=== PATIENT | female | born 1995 | race Caucasian/White ===

== ENCOUNTER 2019-01-04 19:44 | Emergency (ER) | payer OTHER ==
[2019-01-04 20:03] VITALS: TEMP 98.2
[2019-01-04] MEDS ORDERED: ONDANSETRON 4 MG/2 ML VIAL IVP STA (20:55)
[2019-01-04 21:45] LABS: Appearance,Urine Cloudy (Clear); Bacteria,Urine Few /hpf; Bilirubin,Urine Negative (Negative); Blood,Urine Moderate (Negative); Color,Urine Yellow; Glucose,Urine (UA) Negative (Negative); Ketones,Urine Negative (Negative); Leukocyte Esterase,Urine Large (Negative); Mucus,Urine Moderate /hpf; Nitrite,Urine Negative (Negative); Protein,Urine 1+ (Negative); RBC,Urine 12 /hpf (0-5); Specific Gravity,Urine 1.037 (1.001-1.035); Squamous Epithelial Cell,Urine 27 /hpf (0-4); WBC,Urine 59 /hpf (0-5)
[2019-01-04 21:47] LABS: ALT 53 U/L (9-52); AST 40 U/L (14-36); Albumin 4.1 g/dL (3.5-5.0); Alkaline Phosphatase 81 U/L (38-126); Amylase 50 U/L (30-110); Anion Gap 9 mmol/L; Blood Urea Nitrogen 12 mg/dL (7-17); Calcium 9.2 mg/dL (8.4-10.2); Carbon Dioxide 25 mmol/L (22-30); Chloride 105 mmol/L (98-107); Glucose 89 mg/dL (74-99); Lipase 74 U/L (23-300); Potassium 3.8 mmol/L (3.5-5.1); Sodium 139 mmol/L (137-145); Total Bilirubin 0.7 mg/dL (0.2-1.3); Total Protein 6.8 g/dL (6.3-8.2)
[2019-01-04 21:50] LABS: Basophils % (A) 0 %; Eosinophils # (A) 0.2 k/uL (0-0.7); Eosinophils % (A) 3 %; HCT 40.3 % (34.0-46.0); HGB 13.5 gm/dL (11.4-16.0); Lymphocytes # (A) 2.3 k/uL (1.0-4.8); Lymphocytes % (A) 25 %; MCH 29.7 pg (25.0-35.0); MCHC 33.4 g/dL (31.0-37.0); MCV 88.7 fL (80.0-100.0); Mean Platelet Volume 6.9; Monocytes # (A) 0.4 k/uL (0-1.0); Monocytes % (A) 4 %; Neutrophils # (A) 5.9 k/uL (1.3-7.7); Neutrophils % (A) 65 %; Platelet Count 407 k/uL (150-450); RBC 4.54 m/uL (3.80-5.40); RDW 13.5 % (11.5-15.5); WBC 9.1 k/uL (3.8-10.6)
[2019-01-04] MEDS ORDERED: LEVOFLOXACIN 750 MG TAB PO STA (22:09)
--- NOTE | 2019-01-04 22:14 | ED ---
Abdominal Pain HPI - General Chief Complaint: Abdominal Pain Stated Complaint: vomiting/body aches Time Seen by Provider: 01/04/19 20:54 Source: patient Mode of arrival: ambulatory Limitations: no limitations - History of Present Illness Initial Comments: This patient is 23-year-old woman who presents to be evaluated for right lower quadrant and right flank pains that are been going on since Tuesday. She states that came on shortly after noon which is just after she woke up that day. She describes them as being a stabbing type of pain which is intermittent, lasting about 30 minutes when it comes on. She states that the pain at the moment is only minimal. She declines analgesic. Patient states she has not noted any worsening or relieving factors. She has had some associated nausea and vomiting. Patient states that she was seen at [facility] Tuesday for this pain where they checked some lab tests, that she states showed tacos vation of her white blood cell count but not very high. She states she had a computed tomography scan was told that her appendix looked normal. The patient states her last bowel movement was earlier today and was normal. She has had a couple of episodes of vomiting without any blood or bile. Her last period was approximately 3 weeks ago and was normal. She is not having any vaginal discharge. MD Complaint: abdominal pain Onset/Timin -: days(s) Location: RLQ, R flank Radiation: none Migration to: no migration Severity: mild Quality: stabbing Consistency: colicky Improves With: nothing Associated Symptoms: nausea, vomiting - Related Data LMP (females 10-50): 3 weeks Home Medications Medication Instructions Recorded Confirmed Albuterol Sulfate [Proair Hfa] 2 puff INHALATION RT-Q6H PRN 01/04/19 01/04/19 Beclomethasone Dip 80 Mcg/Puff 1 puff INHALATION RT-BID 01/04/19 01/04/19 [Qvar 80 mcg] Biotin 5 mg PO DAILY 01/04/19 01/04/19 Blisovi 25 Fe 10/01 1 tab PO DAILY 01/04/19 01/04/19 Escitalopram [Lexapro] 20 mg PO DAILY 01/04/19 01/04/19 Loratadine [Claritin] 10 mg PO DAILY 01/04/19 01/04/19 Melatonin 10 mg PO HS 01/04/19 01/04/19 Montelukast [Singulair] 10 mg PO HS 01/04/19 01/04/19 Barton-3 Fatty Acids [Barton-3] 1,000 mg PO DAILY 01/04/19 01/04/19 lamoTRIgine [LaMICtal] 150 mg PO BID 01/04/19 01/04/19 Previous Rx's Medication Instructions Recorded Ciprofloxacin HCl [Cipro] 500 mg PO BID 3 Days #6 tab 01/04/19 Allergies Allergy/AdvReac Type Severity Reaction Status Date / Time bacitracin Allergy Rash/Hives Verified 01/04/19 21:27 [From Neosporin Plus] latex Allergy Rash/Hives Verified 01/04/19 21:27 lidocaine Allergy Rash/Hives Verified 01/04/19 21:27 [From Neosporin Plus] neomycin Allergy Rash/Hives Verified 01/04/19 21:27 [From Neosporin Plus] nickel Allergy Rash/Hives Verified 01/04/19 21:27 polymyxin B Allergy Rash/Hives Verified 01/04/19 21:27 [From Neosporin Plus] pramoxine Allergy Rash/Hives Verified 01/04/19 21:27 [From Neosporin Plus] Sulfa (Sulfonamide Allergy Rash/Hives Verified 01/04/19 21:27 Antibiotics) sulfamethoxazole Allergy Rash/Hives Verified 01/04/19 21:27 [From Bactrim] trimethoprim [From Bactrim] Allergy Rash/Hives Verified 01/04/19 21:27 Review of Systems ROS Statement: Those systems with pertinent positive or pertinent negative responses have been documented in the HPI. ROS Other: All systems not noted in ROS Statement are negative. Constitutional: Denies: fever, chills Respiratory: Denies: cough, dyspnea Cardiovascular: Denies: chest pain, palpitations, edema, syncope Gastrointestinal: Reports: abdominal pain, nausea, vomiting. Denies: diarrhea, melena, hematochezia Genitourinary: Reports: frequency. Denies: dysuria, hematuria, discharge, abno rmal menses Musculoskeletal: Denies: back pain Skin: Denies: rash Neurological: Denies: headache, weakness, numbness Past Medical History Past Medical History: Asthma, GERD/Reflux History of Any Multi-Drug Resistant Organisms: None Reported Past Surgical History: Adenoidectomy, Tonsillectomy Additional Past Surgical History / Comment(s): left knee Past Psychological History: Anxiety, Depression Smoking Status: Never smoker Past Alcohol Use History: None Reported Past Drug Use History: None Reported General Exam Limitations: no limitations General appearance: alert, in no apparent distress Head exam: Present: atraumatic, normocephalic Eye exam: Present: normal appearance ENT exam: Present: normal oropharynx Respiratory exam: Present: normal lung sounds bilaterally. Absent: respiratory distress, wheezes, rales, rhonchi, stridor Cardiovascular Exam: Present: regular rate, normal rhythm, normal heart sounds. Absent: systolic murmur, diastolic murmur, rubs, gallop GI/Abdominal exam: Present: soft, normal bowel sounds. Absent: distended, tenderness, guarding, rebound, rigid, mass, pulsatile mass, hernia Extremities exam: Present: normal inspection, normal capillary refill. Absent: pedal edema, calf tenderness Back exam: Present: normal inspection. Absent: CVA tenderness (R), CVA tenderness (L) Neurological exam: Present: alert Skin exam: Present: warm, dry, intact, normal color. Absent: rash Course Vital Signs 01/04/19 19:59 Temperature 98.2 F Pulse Rate 86 Respiratory 18 Rate Blood Pressure 103/70 O2 Sat by Pulse 98 Oximetry Medical Decision Making - Medical Decision Making Patient is 23-year-old woman with some lower and right flank abdominal pain. She does have some white cells in the urine and will treat this. Given the recent computed tomography scan, we discussed risks and benefits of repeating this for the chance of appendicitis, but the patient states that she would rather try the course of antibiotics and follow-up. The patient's abdominal exam is benign, not concerning for any evidence of appendicitis or peritoneal condition. We did discuss appropriate further care as well as return parameters. - Lab Data Result diagrams: 01/04/19 21:26 01/04/19 21:26 Lab Results 01/04/19 01/04/19 01/04/19 Range/Units 21:26 21: 21: WBC 9.1 (3.8-10.6) k/uL RBC 4.54 (3.80-5.40) m/uL Hgb 13.5 (11.4-16.0) gm/dL Hct 40.3 (34.0-46.0) % MCV 88.7 (80.0-100.0) fL MCH 29.7 (25.0-35.0) pg MCHC 33.4 (31.0-37.0) g/dL RDW 13.5 (11.5-15.5) % Plt Count 407 (150-450) k/uL Neutrophils % 65 % Lymphocytes % 25 % Monocytes % 4 % Eosinophils % 3 % Basophils % 0 % Neutrophils # 5.9 (1.3-7.7) k/uL Lymphocytes # 2.3 (1.0-4.8) k/uL Monocytes # 0.4 (0-1.0) k/uL Eosinophils # 0.2 (0-0.7) k/uL Basophils # 0.0 (0-0.2) k/uL Sodium 139 (137-145) mmol/L Potassium 3.8 (3.5-5.1) mmol/L Chloride 105 (98-107) mmol/L Carbon Dioxide 25 (22-30) mmol/L Anion Gap 9 mmol/L BUN 12 (7-17) mg/dL Creatinine 0.56 (0.52-1.04) mg/dL Est GFR (CKD-EPI)AfAm >90 (>60 ml/min/1.73 sqM) Est GFR (CKD-EPI)NonAf >90 (>60 ml/min/1.73 sqM) Glucose 89 (74-99) mg/dL Calcium 9.2 (8.4-10.2) mg/dL Total Bilirubin 0.7 (0.2-1.3) mg/dL AST 40 H (14-36) U/L ALT 53 H (9-52) U/L Alkaline Phosphatase 81 (38-126) U/L Total Protein 6.8 (6.3-8.2) g/dL Albumin 4.1 (3.5-5.0) g/dL Amylase 50 (30-110) U/L Lipase 74 (23-300) U/L Urine Color Yellow Urine Appearance Cloudy H (Clear) Urine pH 6.0 (5.0-8.0) Ur Specific [place] 1.037 H (1.001-1.035) Urine Protein 1+ H (Negative) Urine Glucose (UA) Negative (Negative) Urine Ketones Negative (Negative) Urine Blood Moderate H (Negative) Urine Nitrite Negative (Negative) Urine Bilirubin Negative (Negative) Urine Urobilinogen 2.0 (<2.0) mg/dL Ur Leukocyte Esterase Large H (Negative) Urine RBC 12 H (0-5) /hpf Urine WBC 59 H (0-5) /hpf Ur Squamous Epith Cells 27 H (0-4) /hpf Urine Bacteria Few H (None) /hpf Urine Mucus Moderate H (None) /hpf Disposition Clinical Impression: Urinary tract infection Disposition: HOME SELF-CARE Condition: Good Instructions (If sedation given, give patient instructions): Urinary Tract Infection in Women (ED) Prescriptions: Ciprofloxacin HCl [Cipro] 500 mg PO BID 3 Days #6 tab Is patient prescribed a controlled substance at d/c from ED?: No Referrals: Joss Fernandes MD [Primary Care Provider] - 1-2 days
[2019-01-04 23:08] VITALS: BP 126/79; PULSE 72; RESP 16
== END 2019-01-04 23:08 | disposition home or self-care (01) ==
LOC: EC 19:44
DX: N39.0 Urinary tract infection, site not specified (principal); J45.909 Unspecified asthma, uncomplicated; F41.9 Anxiety disorder, unspecified; F32.9 Major depressive disorder, single episode, unspecified; Z79.899 Other long term (current) drug therapy; Z88.1 Allergy status to other antibiotic agents; Z88.4 Allergy status to anesthetic agent; Z88.8 Allergy status to other drugs, medicaments and biological substances; Z88.2 Allergy status to sulfonamides; Z91.040 Latex allergy status
CPT/HCPCS: 36415; 80053; 82150; 83690; 85025; 81001; 99283; 96374; J2405

== ENCOUNTER 2019-01-10 21:56 | Emergency (ER) | payer OTHER ==
[2019-01-10 22:05] VITALS: TEMP 97.9
[2019-01-10] MEDS ORDERED: SODIUM CHLORIDE 0.9% 1,000 ML IV ONE (22:19)
--- NOTE | 2019-01-10 23:02 | ED ---
Nausea/Vomiting/Diarrhea HPI - General Chief complaint: Nausea/Vomiting/Diarrhea Stated complaint: Vomiting, LRQ pain Time Seen by Provider: 01/10/19 22:18 Source: patient, family Mode of arrival: ambulatory Limitations: no limitations - History of Present Illness Initial comments: Sarina is a morbidly obese 23-year-old female who presents to the emergency department today for evaluation of abdominal pain, nausea and vomiting. Patient states that since [facility] 12/31/2018 she has been experiencing alternating days of nausea and vomiting. She reports that on some she feels completely fine and she is able to eat anything she wants, however on other days she has nausea and vomiting. Patient was evaluated in our emergency department as well as an out side emergency department in the past 2 weeks with no acute findings. Patient returns today because she's had 3 episodes of nonbloody nonbilious emesis. Patient reports she has some vague right-sided abdominal pain and she has had loose stools no blood in her stools. - Related Data Home Medications Medication Instructions Recorded Confirmed Albuterol Sulfate [Proair Hfa] 2 puff INHALATION RT-Q6H PRN 01/04/19 01/10/19 Beclomethasone Dip 80 Mcg/Puff 1 puff INHALATION RT-BID 01/04/19 01/10/19 [Qvar 80 mcg] Biotin 5 mg PO DAILY 01/04/19 01/10/19 Blisovi 25 10/01 1 tab PO DAILY 01/04/19 01/10/19 Escitalopram [Lexapro] 20 mg PO DAILY 01/04/19 01/10/19 Loratadine [Claritin] 10 mg PO DAILY 01/04/19 01/10/19 Melatonin 10 mg PO HS 01/04/19 01/10/19 Montelukast [Singulair] 10 mg PO HS 01/04/19 01/10/19 Sundance-3 Fatty Acids [Sundance-3] 1,000 mg PO DAILY 01/04/19 01/10/19 lamoTRIgine [LaMICtal] 150 mg PO BID 01/04/19 01/10/19 Amoxicillin 500 mg PO TID 01/10/19 01/10/19 Dicyclomine [Bentyl] 20 mg PO Q6H 01/10/19 01/10/19 Fluticasone Nasal [place] [Flonase 1 spray EA NOSTRIL BID 01/10/19 01/10/19 Nasal [place]] Omeprazole [PriLOSEC] 20 mg PO DAILY 01/10/19 01/10/19 Primidone [Mysoline] 50 mg PO BID 01/10/19 01/10/19 methylPREDNISolone [Medrol Dose See Taper PO DIRECTED 01/10/19 01/10/19 Pack] Previous Rx's Medication Instructions Recorded Ondansetron [Zofran ODT] 4 mg PO Q8HR #12 tab 01/11/19 Allergies Allergy/AdvReac Type Severity Reaction Status Date / Time bacitracin Allergy Rash/Hives Verified 01/10/19 22:29 [From Neosporin Plus] latex Allergy Rash/Hives Verified 01/10/19 22:29 lidocaine Allergy Rash/Hives Verified 01/10/19 22:29 [From Neosporin Plus] neomycin Allergy Rash/Hives Verified 01/10/19 22:29 [From Neosporin Plus] nickel Allergy Rash/Hives Verified 01/10/19 22:29 polymyxin B Allergy Rash/Hives Verified 01/10/19 22:29 [From Neosporin Plus] pramoxine Allergy Rash/Hives Verified 01/10/19 22:29 [From Neosporin Plus] Sulfa (Sulfonamide Allergy Rash/Hives Verified 01/10/19 22:29 Antibiotics) sulfamethoxazole Allergy Rash/Hives Verified 01/10/19 22:29 [From Bactrim] trimethoprim [From Bactrim] Allergy Rash/Hives Verified 01/10/19 22:29 Review of Systems ROS Statement: Those systems with pertinent positive or pertinent negative responses have been documented in the HPI. ROS Other: All systems not noted in ROS Statement are negative. Past Medical History Past Medical History: Asthma, GERD/Reflux History of Any Multi-Drug Resistant Organisms: None Reported, MRSA Date of last positivie culture/infection: 2017 MDRO Source:: leg, arm Past Surgical History: Adenoidectomy, Tonsillectomy Additional Past Surgical History / Comment(s): left knee Past Psychological History: Anxiety, Depression Smoking Status: Never smoker Past Alcohol Use History: None Reported Past Drug Use History: None Reported General Exam - General Exam Comments Initial Comments: Physical Exam GENERAL: Patient is well-developed and well-nourished. Patient is nontoxic and well-hydrated and is in no distress. HENT: Normocephalic, Atraumatic. EYES: PERRL, EOMI PULMONARY: Unlabored respirations. No audible rales rhonchi or wheezing was noted. CARDIOVASCULAR: There is a regular rate and rhythm without any murmurs gallops or rubs. ABDOMEN: Soft and nontender with normal bowel sounds. SKIN: Skin is clear with no lesions or rashes and otherwise unremarkable. : Deferred NEUROLOGIC: Patient is alert and oriented x3. Moving all extremities spontaneously MUSCULOSKELETAL: Normal extremities with adequate strength and full range of motion. No lower extremity swelling or edema. No calf tenderness. PSYCHIATRIC: Normal psychiatric evaluation. Limitations: no limitations Limitations: no limitations Course Vital Signs 01/10/19 22:01 Temperature 97.9 F Pulse Rate 96 Respiratory 18 Rate Blood Pressure 121/78 O2 Sat by Pulse 97 Oximetry Medical Decision Making - Medical Decision Making The patient was seen and evaluated history was obtained from patient mother bedside Patient with intermittent abdominal pain nausea and vomiting for over 2 weeks duration Advised the patient that we will obtain labs and an ultrasound however I suspect she'll need outpatient follow-up with gastroenterology or neurosurgery for further workup Labs revealed normal liver function, normal CBC, mildly elevated CRP which is nonspecific and could be related to the patient's recent urinary tract infection or underlying inflammatory process On repeat examination prior to discharge, the patient has a soft abdomen with no peritoneal findings. The patient was able to tolerate oral intake. The patient was advised that even though there is no evidence of a surgical emergency at this time, sometimes this is not apparent initially or in the labs early in a disease course and that if there is additional pain they are to return for repeat evaluation. The patient stated understanding of this, has decisional making capacity and is discharged in stable condition. The patient was instructed to return to the emergency department for re-evaluation in 8-12 hours and sooner if they feel worse in any way. This time I advised the patient to begin keeping a food diary to see if she can find any correlation between food she eats and any changes in her bowel habits or development of nausea and vomiting. In addition I advised patient she needs to follow up with gastroenterology for further evaluation. - Lab Data Result diagrams: 01/10/19 23:11 01/10/19 23:11 Lab Results 01/10/19 01/10/19 01/11/19 Range/Units 23:11 23:11 00:15 WBC 8.9 (3.8-10.6) k/uL RBC 4.35 (3.80-5.40) m/uL Hgb 12.8 (11.4-16.0) gm/dL Hct 38.9 (34.0-46.0) % MCV 89.5 (80.0-100.0) fL MCH 29.5 (25.0-35.0) pg MCHC 33.0 (31.0-37.0) g/dL RDW 12.9 (11.5-15.5) % Plt Count 408 (150-450) k/uL Neutrophils % 64 % Lymphocytes % 22 % Monocytes % 6 % Eosinophils % 4 % Basophils % 1 % Neutrophils # 5.7 (1.3-7.7) k/uL Lymphocytes # 2.0 (1.0-4.8) k/uL Monocytes # 0.6 (0-1.0) k/uL Eosinophils # 0.4 (0-0.7) k/uL Basophils # 0.1 (0-0.2) k/uL Sodium 142 (137-145) mmol/L Potassium 4.6 (3.5-5.1) mmol/L Chloride 104 (98-107) mmol/L Carbon Dioxide 28 (22-30) mmol/L Anion Gap 10 mmol/L BUN 11 (7-17) mg/dL Creatinine 0.53 (0.52-1.04) mg/dL Est GFR (CKD-EPI)AfAm >90 (>60 ml/min/1.73 sqM) Est GFR (CKD-EPI)NonAf >90 (>60 ml/min/1.73 sqM) Glucose 89 (74-99) mg/dL Calcium 9.7 (8.4-10.2) mg/dL Total Bilirubin 0.7 (0.2-1.3) mg/dL AST 30 (14-36) U/L ALT 45 (9-52) U/L Alkaline Phosphatase 76 (38-126) U/L C-Reactive Protein 23.9 H (<10.0) mg/L Total Protein 6.7 (6.3-8.2) g/dL Albumin 4.2 (3.5-5.0) g/dL Urine Color Urine Appearance (Clear) Urine pH (5.0-8.0) Ur Specific [place] (1.001-1.035) Urine Protein (Negative) Urine Glucose (UA) (Negative) Urine Ketones (Negative) Urine Blood (Negative) Urine Nitrite (Negative) Urine Bilirubin (Negative) Urine Urobilinogen (<2.0) mg/dL Ur Leukocyte Esterase (Negative) Urine RBC (0-5) /hpf Urine WBC (0-5) /hpf Ur Squamous Epith Cells (0-4) /hpf Urine Bacteria (None) /hpf Urine Mucus (None) /hpf Urine HCG, Qual Not Detected (Not Detectd) 01/11/19 Range/Units 00:15 WBC (3.8-10.6) k/uL RBC (3.80-5.40) m/uL Hgb (11.4-16.0) gm/dL Hct (34.0-46.0) % MCV (80.0-100.0) fL MCH (25.0-35.0) pg MCHC (31.0-37.0) g/dL RDW (11.5-15.5) % Plt Count (150-450) k/uL Neutrophils % % Lymphocytes % % Monocytes % % Eosinophils % % Basophils % % Neutrophils # (1.3-7.7) k/uL Lymphocytes # (1.0-4.8) k/uL Monocytes # (0-1.0) k/uL Eosinophils # (0-0.7) k/uL Basophils # (0-0.2) k/uL Sodium (137-145) mmol/L Potassium (3.5-5.1) mmol/L Chloride (98-107) mmol/L Carbon Dioxide (22-30) mmol/L Anion Gap mmol/L BUN (7-17) mg/dL Creatinine (0.52-1.04) mg/dL Est GFR (CKD-EPI)AfAm (>60 ml/min/1.73 sqM) Est GFR (CKD-EPI)NonAf (>60 ml/min/1.73 sqM) Glucose (74-99) mg/dL Calcium (8.4-10.2) mg/dL Total Bilirubin (0.2-1.3) mg/dL AST (14-36) U/L ALT (9-52) U/L Alkaline Phosphatase (38-126) U/L C-Reactive Protein (<10.0) mg/L Total Protein (6.3-8.2) g/dL Albumin (3.5-5.0) g/dL Urine Color Yellow Urine Appearance Cloudy H (Clear) Urine pH 7.0 (5.0-8.0) Ur Specific [place] 1.013 (1.001-1.035) Urine Protein Negative (Negative) Urine Glucose (UA) Negative (Negative) Urine Ketones Negative (Negative) Urine Blood Negative (Negative) Urine Nitrite Negative (Negative) Urine Bilirubin Negative (Negative) Urine Urobilinogen <2.0 (<2.0) mg/dL Ur Leukocyte Esterase Large H (Negative) Urine RBC 2 (0-5) /hpf Urine WBC 12 H (0-5) /hpf Ur Squamous Epith Cells 7 H (0-4) /hpf Urine Bacteria Occasional H (None) /hpf Urine Mucus Rare H (None) /hpf Urine HCG, Qual (Not Detectd) Disposition Clinical Impression: Abdominal pain Disposition: HOME SELF-CARE Condition: Stable Instructions (If sedation given, give patient instructions): Acute Nausea and Vomiting (ED) Prescriptions: Ondansetron [Zofran ODT] 4 mg PO Q8HR #12 tab Is patient prescribed a controlled substance at d/c from ED?: No Referrals: Joss Fernandes MD [Primary Care Provider] - 1-2 days Claudio Burnett MD [STAFF PHYSICIAN] - 1-2 days Armani Mckay MD [STAFF PHYSICIAN] - 1-2 days
[2019-01-10 23:36] LABS: Basophils # (A) 0.1 k/uL (0-0.2); Basophils % (A) 1 %; Eosinophils # (A) 0.4 k/uL (0-0.7); Eosinophils % (A) 4 %; HCT 38.9 % (34.0-46.0); HGB 12.8 gm/dL (11.4-16.0); Lymphocytes % (A) 22 %; MCH 29.5 pg (25.0-35.0); MCV 89.5 fL (80.0-100.0); Mean Platelet Volume 6.2; Monocytes # (A) 0.6 k/uL (0-1.0); Monocytes % (A) 6 %; Neutrophils # (A) 5.7 k/uL (1.3-7.7); Neutrophils % (A) 64 %; Platelet Count 408 k/uL (150-450); RBC 4.35 m/uL (3.80-5.40); RDW 12.9 % (11.5-15.5); WBC 8.9 k/uL (3.8-10.6)
[2019-01-11 00:07] LABS: ALT 45 U/L (9-52); AST 30 U/L (14-36); Albumin 4.2 g/dL (3.5-5.0); Alkaline Phosphatase 76 U/L (38-126); Anion Gap 10 mmol/L; Blood Urea Nitrogen 11 mg/dL (7-17); C Reactive Protein 23.9 mg/L (<10.0); Calcium 9.7 mg/dL (8.4-10.2); Carbon Dioxide 28 mmol/L (22-30); Chloride 104 mmol/L (98-107); Glucose 89 mg/dL (74-99); Potassium 4.6 mmol/L (3.5-5.1); Sodium 142 mmol/L (137-145); Total Bilirubin 0.7 mg/dL (0.2-1.3); Total Protein 6.7 g/dL (6.3-8.2)
--- NOTE | 2019-01-11 00:54 | US ---
EXAM: US Abdomen Limited, Right Upper Quadrant CLINICAL HISTORY: ITS.REASON US Reason: Pain, vomiting TECHNIQUE: Real-time ultrasound of the right upper quadrant with image documentation. COMPARISON: CT 10/23/14 FINDINGS: Liver: Prominent in size measuring 18.3 cm in length. Suspected increase in echogenicity. Incompletely characterized enhancing lesion seen on previous CT in the right hepatic lobe not identified by ultrasound. Gallbladder: No gallstones. Provided wall thickness mildly prominent at slightly over 3 mm. Sonographic Jeffries sign reported as negative. Common bile duct: Normal caliber as visualized. Pancreas: Portions obscured. Unremarkable as visualized. Right kidney: Unremarkable. No hydronephrosis. IMPRESSION: No gallstones. Mild prominence of gallbladder wall. Negative sonographic Jeffries's. Prominent size liver with suspected increased echogenicity. Enhancing liver lesion seen in the right hepatic lobe on previous CT not identified. Seen only on portal venous imaging and not on delayed images. Differential includes hemangioma. Nonemergent MRI or other follow-up could be obtained, as indicated.
[2019-01-11 00:56] LABS: Appearance,Urine Cloudy (Clear); Bacteria,Urine Occasional /hpf; Bilirubin,Urine Negative (Negative); Blood,Urine Negative (Negative); Color,Urine Yellow; Glucose,Urine (UA) Negative (Negative); Ketones,Urine Negative (Negative); Leukocyte Esterase,Urine Large (Negative); Mucus,Urine Rare /hpf; Nitrite,Urine Negative (Negative); Protein,Urine Negative (Negative); RBC,Urine 2 /hpf (0-5); Specific Gravity,Urine 1.013 (1.001-1.035); Squamous Epithelial Cell,Urine 7 /hpf (0-4); Urobilinogen,Urine <2.0 mg/dL (<2.0); WBC,Urine 12 /hpf (0-5)
[2019-01-11 01:24] VITALS: BP 122/77; PULSE 70; RESP 16
== END 2019-01-11 01:24 | disposition home or self-care (01) ==
LOC: EC 21:56
DX: R10.31 Right lower quadrant pain (principal); R11.2 Nausea with vomiting, unspecified; R19.7 Diarrhea, unspecified; R79.82 Elevated C-reactive protein (CRP); J45.909 Unspecified asthma, uncomplicated; K21.9 Gastro-esophageal reflux disease without esophagitis; F41.9 Anxiety disorder, unspecified; F32.9 Major depressive disorder, single episode, unspecified; E66.01 Morbid (severe) obesity due to excess calories; Z68.41 Body mass index [BMI] 40.0-44.9, adult; Z86.14 Personal history of Methicillin resistant Staphylococcus aureus infection; Z79.51 Long term (current) use of inhaled steroids; Z79.52 Long term (current) use of systemic steroids; Z79.899 Other long term (current) drug therapy; Z88.1 Allergy status to other antibiotic agents; Z88.4 Allergy status to anesthetic agent; Z91.040 Latex allergy status; Z91.048 Other nonmedicinal substance allergy status; Z88.2 Allergy status to sulfonamides
CPT/HCPCS: 36415; 76705; 80053; 81001; 81025; 85025; 86140; 87502; 96360; 96361; 99284

== ENCOUNTER → 2019-01-19 | Outpatient (CLI) | payer OTHER ==
--- NOTE | 2019-01-21 19:43 | US ---
EXAMINATION TYPE: US pelvic complete DATE OF EXAM: 01/19/2019 COMPARISON: None CLINICAL HISTORY: 23-year-old female R10.2 pelvic Pain. Intermittent N/V and right pelvic pain x 1 mo nth TECHNIQUE: Transabdominal sonographic images of the pelvis were acquired. Transvaginal sonographic images were medically necessary to better assess the following anatomy: ovaries Date of LMP: 3-4 weeks ago FINDINGS: EXAM MEASUREMENTS: Uterus: 6.8 x 3.0 x 4.4 cm Endometrial Stripe: 0.4 cm Right Ovary: 3.3 x 2.6 x 2.8 cm Left Ovary: 2.5 x 1.3 x 1.7 cm PARTS ADMINISTRATOR NOTES: Difficult and limited study due to patient body habitus 1. Uterus: retroverted, slightly heterogeneous 2. Endometrium: appears wnl 3. Right Ovary: 2.0 x 1.6 x 2.0cm cystic lesion 4. Left Ovary: wnl 5. Bilateral Adnexa: wnl 6. Posterior cul-de-sac: wnl IMPRESSION: Retroverted uterus. Some exam limitations due to patient body habitus. A 2.0 cm dominant follicle or functional cyst in the right ovary. No specific abnormality seen.
== END ==
LOC: RADUSWWP 16:04
PROVIDERS: ATTEND Obstetrics & Gynecology
DX: N83.201 Unspecified ovarian cyst, right side (principal); N85.4 Malposition of uterus
CPT/HCPCS: 76830; 76856

== ENCOUNTER 2019-07-09 14:14 | Emergency (ER) | payer OTHER ==
[2019-07-09 14:26] VITALS: TEMP 98.3
[2019-07-09] MEDS ORDERED: methylPREDNISolone SOD SUCCI 125 MG/2 ML VIAL IM ONE (14:35)
[2019-07-09] MEDS ORDERED: FAMOTIDINE 20 MG TAB PO STA (14:35)
[2019-07-09] MEDS ORDERED: diphenhydrAMINE 50 MG CAP PO STA (14:35)
--- NOTE | 2019-07-09 14:36 | ED ---
General Adult HPI - General Chief complaint: Allergic Reaction Stated complaint: Poss allergic reaction Time Seen by Provider: 07/09/19 14:17 Source: patient, RN notes reviewed Mode of arrival: ambulatory Limitations: no limitations - History of Present Illness Initial comments: 10-year-old female with a past medical history of asthma, GERD, psoriasis pr esents to the emergency department for a chief complaint of hives. Patient states these hives started Tuesday. States that she was seen at another emergency department and given Benadryl which did help. She was discharged home and had recurrence of hives today. Patient did start amitriptyline in the past 2-3 weeks. She denies starting or using any new detergents or shampoos lotions. She thinks that this may be a reaction to the amitriptyline. She denies any swelling of the lips tongue or throat.Patient has no other complaints at this time including shortness of breath, chest pain, abdominal pain, nausea or vomiting, headache, or visual changes. - Related Data Home Medications Medication Instructions Recorded Confirmed Albuterol Sulfate [Proair Hfa] 2 puff INHALATION RT-Q6H PRN 01/04/19 01/10/19 Beclomethasone Dip 80 Mcg/Puff 1 puff INHALATION RT-BID 01/04/19 01/10/19 [Qvar 80 mcg] Biotin 5 mg PO DAILY 01/04/19 01/10/19 Blisovi 25 10/01 1 tab PO DAILY 01/04/19 01/10/19 Escitalopram [Lexapro] 20 mg PO DAILY 01/04/19 01/10/19 Loratadine [Claritin] 10 mg PO DAILY 01/04/19 01/10/19 Melatonin 10 mg PO HS 01/04/19 01/10/19 Montelukast [Singulair] 10 mg PO HS 01/04/19 01/10/19 [place]-3 Fatty Acids [[place]-3] 1,000 mg PO DAILY 01/04/19 01/10/19 lamoTRIgine [LaMICtal] 150 mg PO BID 01/04/19 01/10/19 Amoxicillin 500 mg PO TID 01/10/19 01/10/19 Dicyclomine [Bentyl] 20 mg PO Q6H 01/10/19 01/10/19 Fluticasone Nasal [place] [Flonase 1 spray EA NOSTRIL BID 01/10/19 01/10/19 Nasal [place]] Omeprazole [PriLOSEC] 20 mg PO DAILY 01/10/19 01/10/19 Primidone [Mysoline] 50 mg PO BID 01/10/19 01/10/19 methylPREDNISolone [Medrol Dose See Taper PO DIRECTED 01/10/19 01/10/19 Pack] Previous Rx's Medication Instructions Recorded Ondansetron [Zofran ODT] 4 mg PO Q8HR #12 tab 01/11/19 predniSONE 50 mg PO DAILY #4 tablet 07/09/19 Allergies Allergy/AdvReac Type Severity Reaction Status Date / Time bacitracin Allergy Rash/Hives Verified 07/09/19 14:26 [From Neosporin Plus] latex Allergy Rash/Hives Verified 07/09/19 14:26 lidocaine Allergy Rash/Hives Verified 07/09/19 14:26 [From Neosporin Plus] neomycin Allergy Rash/Hives Verified 07/09/19 14:26 [From Neosporin Plus] nickel Allergy Rash/Hives Verified 07/09/19 14:26 polymyxin B Allergy Rash/Hives Verified 07/09/19 14:26 [From Neosporin Plus] pramoxine Allergy Rash/Hives Verified 07/09/19 14:26 [From Neosporin Plus] Sulfa (Sulfonamide Allergy Rash/Hives Verified 07/09/19 14:26 Antibiotics) sulfamethoxazole Allergy Rash/Hives Verified 07/09/19 14:26 [From Bactrim] trimethoprim [From Bactrim] Allergy Rash/Hives Verified 07/09/19 14:26 Review of Systems ROS Statement: Those systems with pertinent positive or pertinent negative responses have been documented in the HPI. ROS Other: All systems not noted in ROS Statement are negative. Past Medical History Past Medical History: Asthma, GERD/Reflux History of Any Multi-Drug Resistant Organisms: None Reported, MRSA Date of last positivie culture/infection: 2016 MDRO Source:: leg, arm Past Surgical History: Adenoidectomy, Tonsillectomy Additional Past Surgical History / Comment(s): left knee Past Psychological History: Anxiety, Depression Smoking Status: Never smoker Past Alcohol Use History: None Reported Past Drug Use History: None Reported General Exam Limitations: no limitations General appearance: alert, in no apparent distress Head exam: Present: atraumatic, normocephalic, normal inspection Eye exam: Present: normal appearance, PERRL, EOMI. Absent: scleral icterus, conjunctival injection, periorbital swelling ENT exam: Present: normal exam, normal oropharynx (No swelling of lips tongue or throat, no evidence for angioedema), mucous membranes moist, TM's normal bilater ally, normal external ear exam Neck exam: Present: normal inspection, full ROM. Absent: tenderness, meningismus, lymphadenopathy Respiratory exam: Present: normal lung sounds bilaterally. Absent: respiratory distress, wheezes, rales, rhonchi, stridor Cardiovascular Exam: Present: regular rate, normal rhythm, normal heart sounds. Absent: systolic murmur, diastolic murmur, rubs, gallop, clicks Skin exam: Present: urticaria (Patient has raised erythematous plaques consistent with urticaria noted on the neck scalp arms and legs. States these are pruritic, no excoriations or superficial infections.) Course Vital Signs 07/09/19 07/09/19 14:23 15:08 Temperature 98.3 F Pulse Rate 110 H Respiratory 20 18 Rate Blood Pressure 167/86 O2 Sat by Pulse 99 Oximetry Medical Decision Making - Medical Decision Making Patient will discontinue amitriptyline. She was given Solu-Medrol IM, by mouth Benadryl and by mouth Pepcid here in the emergency department. She will continu e by mouth Benadryl in the next couple days. She will continue steroids starting tomorrow. She will follow-up with her neurologist given her ALLERGY to amitriptyline. She will return if she has any worsening symptoms or swelling of the lips tongue or throat which were discussed with her. Disposition Clinical Impression: Urticaria Disposition: HOME SELF-CARE Condition: Good Instructions (If sedation given, give patient instructions): General Allergic Reaction (ED) Additional Instructions: Please take Benadryl as needed every 6 hours. Take steroids starting tomorrow. These were prescribed to [facility] on . Discontinue Elavil. F ollow-up with primary care in 1-2 days as well as neurology. Return to the emergency department if you have any worsening symptoms. Prescriptions: predniSONE 50 mg PO DAILY #4 tablet Is patient prescribed a controlled substance at d/c from ED?: No Referrals: Joss Fernandes MD [Primary Care Provider] - 1-2 days Time of Disposition: 15:19
[2019-07-09 15:35] VITALS: BP 107/67; PULSE 87; RESP 16
== END 2019-07-09 15:55 | disposition home or self-care (01) ==
LOC: EC 14:14
DX: L50.0 Allergic urticaria (principal); T43.015A Adverse effect of tricyclic antidepressants, initial encounter; J45.909 Unspecified asthma, uncomplicated; K21.9 Gastro-esophageal reflux disease without esophagitis; F32.9 Major depressive disorder, single episode, unspecified; F41.9 Anxiety disorder, unspecified; Z88.1 Allergy status to other antibiotic agents; Z88.2 Allergy status to sulfonamides; Z88.3 Allergy status to other anti-infective agents; Z88.4 Allergy status to anesthetic agent; Z91.040 Latex allergy status; Z91.048 Other nonmedicinal substance allergy status; Z79.3 Long term (current) use of hormonal contraceptives; Z79.51 Long term (current) use of inhaled steroids; Z79.52 Long term (current) use of systemic steroids; Z79.899 Other long term (current) drug therapy; Z86.14 Personal history of Methicillin resistant Staphylococcus aureus infection
CPT/HCPCS: 99283; 96372; J2930

== ENCOUNTER 2021-04-14 21:35 | Emergency (ER) | payer OTHER ==
[2021-04-14 21:48] VITALS: BP 107/76; PULSE 85; RESP 18; TEMP 98.4
[2021-04-14] MEDS ORDERED: ACETAMINOPHEN TAB 325 MG TAB PO STA (23:33)
[2021-04-14] MEDS ORDERED: IBUPROFEN 600 MG TAB PO STA (23:33)
--- NOTE | 2021-04-14 23:38 | ED ---
Extremity Problem HPI - General Chief complaint: Extremity Problem,Nontraumatic Stated complaint: Lft knee pain Time Seen by Provider: 04/14/21 23:20 Source: patient Mode of arrival: ambulatory Limitations: no limitations - History of Present Illness Initial comments: 25-year-old female presents to emergency department a chief complaint of left knee pain. Patient reports she's had 2 previous surgeries about 5 years ago at [facility]. States the first one failed and the looks of the second one is also feeling. States yesterday she felt her knee give out and has undergone a valgus injury. States today she also felt a sudden pop followed by pain in the knee. States most of the pain is located in the medial aspect of the knee. Denies significant swelling ecchymosis or erythema to the region. Denies any paresthesias or weakness down the leg. - Related Data Home Medications Medication Instructions Recorded Confirmed Albuterol Sulfate [Proair Hfa] 2 puff INHALATION RT-Q4H PRN 01/04/19 07/09/19 Beclomethasone Dip 80 Mcg/Puff 2 puff INHALATION RT-BID PRN 01/04/19 07/09/19 [Qvar 80 mcg] Blisovi 10/01 1 tab PO DAILY 01/04/19 07/09/19 Loratadine [Claritin] 10 mg PO DAILY 01/04/19 07/09/19 Melatonin 10 mg PO HS PRN 01/04/19 07/09/19 Montelukast [Singulair] 10 mg PO HS 01/04/19 07/09/19 lamoTRIgine [LaMICtal] 150 mg PO BID 01/04/19 07/09/19 Omeprazole [PriLOSEC] 20 mg PO DAILY 01/10/19 07/09/19 Primidone [Mysoline] 50 mg PO BID 01/10/19 07/09/19 Butalbital/Aspirin/Caffeine 1 tab PO Q8H PRN 07/09/19 07/09/19 [Dfsaji-Oxiwzhe-Yfwicslx 50-325-40 mg] Cholecalciferol (Vitamin D3) 2,000 unit PO DAILY 07/09/19 07/09/19 [Vitamin D3] DULoxetine HCL [Cymbalta] 40 mg PO DAILY 07/09/19 07/09/19 Allergies Allergy/AdvReac Type Severity Reaction Status Date / Time amitriptyline [From Elavil] Allergy Rash/Hives Verified 04/14/21 21:48 bacitracin Allergy Rash/Hives Verified 04/14/21 21:48 [From Neosporin Plus] latex Allergy Rash/Hives Verified 04/14/21 21:48 lidocaine Allergy Rash/Hives Verified 04/14/21 21:48 [From Neosporin Plus] neomycin Allergy Rash/Hives Verified 04/14/21 21:48 [From Neosporin Plus] nickel Allergy Rash/Hives Verified 04/14/21 21:48 polymyxin B Allergy Rash/Hives Verified 04/14/21 21:48 [From Neosporin Plus] pramoxine Allergy Rash/Hives Verified 04/14/21 21:48 [From Neosporin Plus] Sulfa (Sulfonamide Allergy Rash/Hives Verified 04/14/21 21:48 Antibiotics) sulfamethoxazole Allergy Rash/Hives Verified 04/14/21 21:48 [From Bactrim] trimethoprim [From Bactrim] Allergy Rash/Hives Verified 04/14/21 21:48 Review of Systems ROS Statement: Those systems with pertinent positive or pertinent negative responses have been documented in the HPI. ROS Other: All systems not noted in ROS Statement are negative. Past Medical History Past Medical History: Asthma, GERD/Reflux History of Any Multi-Drug Resistant Organisms: None Reported, MRSA Date of last positivie culture/infection: 2016 MDRO Source:: leg, arm Past Surgical History: Adenoidectomy, Orthopedic Surgery, Tonsillectomy Additional Past Surgical History / Comment(s): left knee Past Psychological History: Anxiety, Depression Smoking Status: Never smoker Past Alcohol Use History: None Reported Past Drug Use History: None Reported General Exam Limitations: no limitations General appearance: alert, in no apparent distress, obese Head exam: Present: atraumatic, normocephalic, normal inspection Eye exam: Present: normal appearance, PERRL, EOMI Pupils: Present: normal accommodation ENT exam: Present: normal exam, normal oropharynx, mucous membranes moist Neck exam: Present: normal inspection, full ROM. Absent: tenderness, lymphade nopathy Respiratory exam: Present: normal lung sounds bilaterally. Absent: respiratory distress Cardiovascular Exam: Present: regular rate, normal rhythm, normal heart sounds. Absent: systolic murmur Extremities exam: Present: normal inspection, tenderness (Medial left knee tenderness), normal capillary refill, other (Palpable DP and PT bilaterally). Absent: full ROM (N range of motion with flexion to the left knee), pedal edema, calf tenderness Back exam: Present: normal inspection, full ROM. Absent: tenderness, CVA tenderness (R), CVA tenderness (L), muscle spasm Neurological exam: Present: alert, oriented X3, normal gait Psychiatric exam: Present: normal affect, normal mood Skin exam: Present: warm, dry, intact, normal color Course Vital Signs 04/14/21 21:46 Temperature 98.4 F Pulse Rate 85 Respiratory 18 Rate Blood Pressure 107/76 O2 Sat by Pulse 95 Oximetry Medical Decision Making - Medical Decision Making 25-year-old female presents to emergency department a chief complaint of left knee pain. Physical examination is unremarkable. Mother was requesting CT imaging of the knee but advised her that the patient ultimately will need an MRI of the knee to fully assess it. She is agreeable to an x-ray. I do give the patient Tylenol or Motrin for pain. The immobilizer will be applied and they will follow up with the clinical trial specialist. Strict return parameters were thoroughly discussed with mother and patient were understanding and agreeable. Case discussed with physician. Disposition Clinical Impression: Left knee sprain Disposition: HOME SELF-CARE Condition: Stable Instructions (If sedation given, give patient instructions): Knee Sprain (ED) Additional Instructions: Follow-up with clinical trial specialist. Return to emergency department if symptoms worsen. Is patient prescribed a controlled substance at d/c from ED?: No Referrals: Joss Fernandes MD [Primary Care Provider] - 1-2 days Sven Jeffries MD [STAFF PHYSICIAN] - 1-2 days Time of Disposition: 00:03
--- NOTE | 2021-04-14 23:54 | XR ---
EXAMINATION TYPE: XR knee complete LT DATE OF EXAM: 04/14/2021 COMPARISON: NONE HISTORY: Knee pain TECHNIQUE: 3 views FINDINGS: I see no fracture nor dislocation. 2 screws in the tibial tubercle. There is thickening of the tubercle consistent with an old osteochondrosis. There is previous surgery at the patella and dis ashleigh femur with evidence of previous hardware. There is no joint effusion. I see no bony destructive p rocess. IMPRESSION: Previous surgery. No acute abnormality of the left knee. No fracture.
== END 2021-04-15 00:35 | disposition home or self-care (01) ==
LOC: EC 21:35
DX: S83.92XA Sprain of unspecified site of left knee, initial encounter (principal); E66.9 Obesity, unspecified; J45.909 Unspecified asthma, uncomplicated; K21.9 Gastro-esophageal reflux disease without esophagitis; F32.9 Major depressive disorder, single episode, unspecified; F41.9 Anxiety disorder, unspecified; Z79.51 Long term (current) use of inhaled steroids; Z79.82 Long term (current) use of aspirin; Z79.899 Other long term (current) drug therapy; Z88.1 Allergy status to other antibiotic agents; Z88.2 Allergy status to sulfonamides; Z91.040 Latex allergy status; Z68.42 Body mass index [BMI] 45.0-49.9, adult; X50.1XXA Overexertion from prolonged static or awkward postures, initial encounter
CPT/HCPCS: 99283

== ENCOUNTER 2021-09-18 10:37 | Emergency (ER) | payer OTHER ==
[2021-09-18 10:55] VITALS: RESP 20; TEMP 98
[2021-09-18] MEDS ORDERED: diphenhydrAMINE 50 MG CAP PO STA (11:16)
--- NOTE | 2021-09-18 11:16 | ED ---
General Adult HPI - General Chief complaint: Skin/Abscess/Foreign Body Stated complaint: allergic reaction Time Seen by Provider: 09/18/21 11:08 Source: patient, RN notes reviewed, old records reviewed Mode of arrival: ambulatory Limitations: no limitations - History of Present Illness Initial comments: Well-appearing 26-year-old patient, alert and oriented 4, presents to the emergency room with complaints of rash to her chest and chest tightness. She states that she is ALLERGIC to dust and when her heater came on the dust came out. She states that she did use her albuterol inhaler and that has resolved her chest tightness. She denies any nausea vomiting or diarrhea. Denies fevers. No difficulty in breathing or chest pain this time. She states that she did have a rash to her upper chest which has also resolved. -: hour(s) (2) Location: chest Radiation: non-radiation Severity scale (1-10): 0 Consistency: now resolved Improves with: none Worsens with: none Associated Symptoms: shortness of breath Treatments Prior to Arrival: other (Albuterol) - Related Data Home Medications Medication Instructions Recorded Confirmed Albuterol Sulfate [Proair Hfa] 2 puff INHALATION RT-Q4H PRN 01/04/19 09/18/21 Montelukast [Singulair] 10 mg PO HS 01/04/19 09/18/21 lamoTRIgine [LaMICtal] 150 mg PO BID 01/04/19 09/18/21 DULoxetine HCL 40 mg PO DAILY 09/18/21 09/18/21 Fluticasone Nasal [place] [Flonase 2 spray EA NOSTRIL DAILY 09/18/21 09/18/21 Nasal [place]] Fluticasone Propionate 110 Mcg 1 puff INHALATION RT-BID 09/18/21 09/18/21 [Flovent 110 Mcg Inhaler (Mhu)] Norethindrone-E.estradiol-Iron 1 tab PO DAILY 09/18/21 09/18/21 [Kathie 24 Fe 1 mg-20 Mcg Tablet] Allergies Allergy/AdvReac Type Severity Reaction Status Date / Time amitriptyline [From Elavil] Allergy Rash/Hives Verified 09/18/21 12:20 bacitracin Allergy Rash/Hives Verified 09/18/21 12:20 [From Neosporin Plus] latex Allergy Rash/Hives Verified 09/18/21 12:20 lidocaine Allergy Rash/Hives Verified 09/18/21 12:20 [From Neosporin Plus] neomycin Allergy Rash/Hives Verified 09/18/21 12:20 [From Neosporin Plus] nickel Allergy Rash/Hives Verified 09/18/21 12:20 polymyxin B Allergy Rash/Hives Verified 09/18/21 12:20 [From Neosporin Plus] pramoxine Allergy Rash/Hives Verified 09/18/21 12:20 [From Neosporin Plus] Sulfa (Sulfonamide Allergy Rash/Hives Verified 09/18/21 12:20 Antibiotics) sulfamethoxazole Allergy Rash/Hives Verified 09/18/21 12:20 [From Bactrim] trimethoprim [From Bactrim] Allergy Rash/Hives Verified 09/18/21 12:20 Review of Systems ROS Statement: Those systems with pertinent positive or pertinent negative responses have been documented in the HPI. ROS Other: All systems not noted in ROS Statement are negative. Past Medical History Past Medical History: Asthma, GERD/Reflux History of Any Multi-Drug Resistant Organisms: None Reported, MRSA Date of last positivie culture/infection: 2016 MDRO Source:: leg, arm Past Surgical History: Adenoidectomy, Orthopedic Surgery, Tonsillectomy Additional Past Surgical History / Comment(s): left knee Past Psychological History: Anxiety, Depression Smoking Status: Never smoker Past Alcohol Use History: None Reported Past Drug Use History: None Reported General Exam Limitations: no limitations General appearance: alert, in no apparent distress Head exam: Present: atraumatic, normocephalic, normal inspection Eye exam: Present: normal appearance, EOMI. Absent: scleral icterus, conjunctival injection, periorbital swelling, periorbital tenderness ENT exam: Present: normal exam, normal oropharynx, mucous membranes moist, normal external ear exam Neck exam: Present: normal inspection, full ROM. Absent: tenderness, meningismus, lymphadenopathy, thyromegaly Respiratory exam: Present: normal lung sounds bilaterally. Absent: respiratory distress, wheezes, rales, rhonchi, stridor, chest wall tenderness, accessory muscle use, decreased breath sounds Cardiovascular Exam: Present: regular rate, normal rhythm, normal heart sounds. Absent: systolic murmur, diastolic murmur, rubs, gallop, clicks GI/Abdominal exam: Present: soft, normal bowel sounds. Absent: distended, tenderness, guarding, rebound, rigid Extremities exam: Present: normal inspection, full ROM, normal capillary refill. Absent: tenderness, pedal edema, joint swelling, calf tenderness Neurological exam: Present: alert, oriented X3 Psychiatric exam: Present: normal affect, normal mood Skin exam: Present: warm, dry, intact, normal color. Absent: rash, cyanosis, diaphoretic, erythema, urticaria Course Vital Signs 09/18/21 09/18/21 10:54 12:11 Temperature 98 F 98 F Pulse Rate 101 H 94 Respiratory 20 20 Rate Blood Pressure 148/86 132/88 O2 Sat by Pulse 96 97 Oximetry Medical Decision Making - Medical Decision Making Well-appearing 26-year-old patient presents to the emergency room with complaints of rash to her chest and chest tightness after exposure to dust from her heater. She states that she has an ALLERGY to dust. She states that she did use her albuterol inhaler and that has resolved her chest tightness. No difficulty in breathing or chest pain this time. There is no evidence of rash. Lungs sounds are clear to auscultation. She was given Benadryl in the emergency room. She'll be discharged home to return to the emergency room with any new or worsening symptoms. Patient is agreeable to this plan of care. Case discussed with Dr. Peña. Disposition Clinical Impression: Dust exposure Disposition: HOME SELF-CARE Condition: Good Instructions (If sedation given, give patient instructions): Allergies (ED) Additional Instructions: Follow-up with your primary care doctor as needed. Take your albuterol and Singulair as directed. You can take Benadryl for itching or rash. Return to the emergency room with any new or worsening symptoms. Is patient prescribed a controlled substance at d/c from ED?: No Referrals: Joss Fernandes MD [Primary Care Provider] - 1-2 days Time of Disposition: 11:24
[2021-09-18 12:12] VITALS: BP 132/88; PULSE 94
== END 2021-09-18 12:12 | disposition home or self-care (01) ==
LOC: EC 10:37
DX: Z57.2 Occupational exposure to dust (principal); J45.909 Unspecified asthma, uncomplicated; F41.9 Anxiety disorder, unspecified; F32.A Depression, unspecified; Z79.51 Long term (current) use of inhaled steroids
CPT/HCPCS: 99284

== ENCOUNTER 2021-09-29 20:19 | Emergency (ER) | payer OTHER ==
[2021-09-29] MEDS ORDERED: IBUPROFEN 600 MG TAB PO STA (21:40)
[2021-09-29] MEDS ORDERED: ACETAMINOPHEN TAB 500 MG TAB PO STA (21:40)
--- NOTE | 2021-09-29 21:56 | XR ---
EXAMINATION TYPE: XR chest 2V DATE OF EXAM: 09/29/2021 COMPARISON: 06/21/2003 HISTORY: Cough TECHNIQUE: 2 views FINDINGS: Heart and mediastinum are normal. Lungs are clear. Diaphragm is normal. Bony thorax appears normal. IMPRESSION: Normal chest.
[2021-09-29] MEDS ORDERED: predniSONE 50 MG TAB PO STA (22:21)
[2021-09-29 22:23] VITALS: BP 121/85; PULSE 87; RESP 16; TEMP 98.4
--- NOTE | 2021-09-29 22:23 | ED ---
General Adult HPI - General Chief complaint: Upper Respiratory Infection Stated complaint: COUGH,SOB Time Seen by Provider: 09/29/21 21:40 Source: patient, RN notes reviewed Mode of arrival: ambulatory Limitations: no limitations - History of Present Illness Initial comments: 26-year-old female with a past medical history of asthma, GERD presents to the emergency room for a chief complaint of cough. Patient has had a cough for the past day or so. Patient states she has a history of asthma and when this happens sometimes gets pneumonia so wanted to be evaluated. Patient denies shortness of breath or chest pain. Patient has no other complaints at this time including shortness of breath, chest pain, abdominal pain, nausea or vomiting, headache, or visual changes. - Related Data Home Medications Medication Instructions Recorded Confirmed Albuterol Sulfate [Proair Hfa] 2 puff INHALATION RT-Q4H PRN 01/04/19 09/18/21 Montelukast [Singulair] 10 mg PO HS 01/04/19 09/18/21 lamoTRIgine [LaMICtal] 150 mg PO BID 01/04/19 09/18/21 DULoxetine HCL 40 mg PO DAILY 09/18/21 09/18/21 Fluticasone Nasal [place] [Flonase 2 spray EA NOSTRIL DAILY 09/18/21 09/18/21 Nasal [place]] Norethindrone-E.estradiol-Iron 1 tab PO DAILY 09/18/21 09/18/21 [Kathie 24 Fe 1 mg-20 Mcg Tablet] Fluticasone Propionate [Flovent 1 puff INHALATION RT-BID 09/29/21 09/29/21 Hfa 110 mcg] Previous Rx's Medication Instructions Recorded Albuterol Inhaler [Ventolin Hfa 2 puff INHALATION RT-QID PRN #8 gm 09/29/21 Inhaler] predniSONE 50 mg PO DAILY #4 tablet 09/29/21 Allergies Allergy/AdvReac Type Severity Reaction Status Date / Time amitriptyline [From Elavil] Allergy Rash/Hives Verified 09/29/21 22:21 bacitracin Allergy Rash/Hives Verified 09/29/21 22:21 [From Neosporin Plus] latex Allergy Rash/Hives Verified 09/29/21 22:21 lidocaine Allergy Rash/Hives Verified 09/29/21 22:21 [From Neosporin Plus] neomycin Allergy Rash/Hives Verified 09/29/21 22:21 [From Neosporin Plus] nickel Allergy Rash/Hives Verified 09/29/21 22:21 polymyxin B Allergy Rash/Hives Verified 09/29/21 22:21 [From Neosporin Plus] pramoxine Allergy Rash/Hives Verified 09/29/21 22:21 [From Neosporin Plus] Sulfa (Sulfonamide Allergy Rash/Hives Verified 09/29/21 22:21 Antibiotics) sulfamethoxazole Allergy Rash/Hives Verified 09/29/21 22:21 [From Bactrim] trimethoprim [From Bactrim] Allergy Rash/Hives Verified 09/29/21 22:21 Review of Systems ROS Statement: Those systems with pertinent positive or pertinent negative responses have been documented in the HPI. ROS Other: All systems not noted in ROS Statement are negative. Past Medical History Past Medical History: Asthma, GERD/Reflux History of Any Multi-Drug Resistant Organisms: None Reported, MRSA Date of last positivie culture/infection: 2016 MDRO Source:: leg, arm Past Surgical History: Adenoidectomy, Orthopedic Surgery, Tonsillectomy Additional Past Surgical History / Comment(s): left knee Past Psychological History: Anxiety, Depression Smoking Status: Never smoker Past Alcohol Use History: None Reported Past Drug Use History: None Reported General Exam Limitations: no limitations General appearance: alert, in no apparent distress Head exam: Present: atraumatic, normocephalic Eye exam: Present: normal appearance, PERRL, EOMI. Absent: scleral icterus, conjunctival injection ENT exam: Present: normal exam, mucous membranes moist Neck exam: Present: normal inspection, full ROM. Absent: tenderness Respiratory exam: Present: normal lung sounds bilaterally, decreased breath sounds (diminished). Absent: respiratory distress, wheezes Cardiovascular Exam: Present: regular rate, normal rhythm, normal heart sounds Course Vital Signs 09/29/21 20:44 Temperature 100.6 F H Pulse Rate 118 H Respiratory 20 Rate Blood Pressure 124/84 O2 Sat by Pulse 97 Oximetry Medical Decision Making - Medical Decision Making Vitals are stable. Patient is mildly tachycardic likely secondary to fever, given Tylenol. Patient's only complaint is cough and congestion. Patient tested negative for COVID-19. Chest x-ray shows no pneumonia. Symptoms are likely viral in nature. We will start her on a steroid given her history of asthma. She w will follow up with her doctor and return here for any worsening symptoms. - Lab Data Lab Results 09/29/21 Range/Units 20:48 Coronavirus (PCR) Not Detected (Not Detectd) Disposition Clinical Impression: Cough, Fever Disposition: HOME SELF-CARE Condition: Good Instructions (If sedation given, give patient instructions): Upper Respiratory Infection (ED) Additional Instructions: Please take steroid as directed. Please take Tylenol as needed for fever. Drink plenty of fluids. Follow-up with your doctor. Return to the emergency room for any worsening symptoms. Prescriptions: predniSONE 50 mg PO DAILY #4 tablet Albuterol Inhaler [Ventolin Hfa Inhaler] 2 puff INHALATION RT-QID PRN #8 gm PRN Reason: Shortness Of Breath Is patient prescribed a controlled substance at d/c from ED?: No Referrals: Joss Fernandes MD [Primary Care Provider] - 1-2 days Time of Disposition: 22:21
== END 2021-09-29 22:35 | disposition home or self-care (01) ==
LOC: EC 20:19
DX: R05.9 Cough, unspecified (principal); R50.9 Fever, unspecified; Z20.822 Contact with and (suspected) exposure to COVID-19; J45.909 Unspecified asthma, uncomplicated; K21.9 Gastro-esophageal reflux disease without esophagitis; F32.A Depression, unspecified; F41.9 Anxiety disorder, unspecified; Z79.51 Long term (current) use of inhaled steroids; Z79.899 Other long term (current) drug therapy
CPT/HCPCS: 87635; 71046; 99283; J7512

== ENCOUNTER 2021-10-29 20:35 | Emergency (ER) | payer OTHER ==
[2021-10-29 20:40] VITALS: BP 145/91; PULSE 99; RESP 20; TEMP 98.1
[2021-10-29 21:24] LABS: Appearance,Urine Clear (Clear); Bilirubin,Urine Negative (Negative); Blood,Urine Negative (Negative); Color,Urine Yellow; Glucose,Urine (UA) Negative (Negative); Ketones,Urine Negative (Negative); Leukocyte Esterase,Urine Negative (Negative); Nitrite,Urine Negative (Negative); PH, Urine 5.5 (5.0-8.0); Protein,Urine Negative (Negative); Specific Gravity,Urine 1.025 (1.001-1.035); Urobilinogen,Urine <2.0 mg/dL (<2.0)
--- NOTE | 2021-10-29 22:02 | ED ---
General Adult HPI - General Chief complaint: Abdominal Pain Stated complaint: Pelvic Floor Pain Time Seen by Provider: 10/29/21 21:41 Source: patient Mode of arrival: ambulatory Limitations: no limitations - History of Present Illness Initial comments: Patient is a 26-year-old female who presents to the emergency department with a chief complaint of pelvic pain. Patient states that she experienced an episode of bilateral pelvic cramping and and when she urinated there was a light pink tinge color on the toilet paper. Patient has not experienced any bleeding since. Last menstrual period was 10/19/21-10/25/21. Patient also reports increased urinary frequency. She denies dysuria. Patient reports that her mom suggested that she should be evaluated. Patient denies fever, chills, generalized weakness, headache, shortness of breath, chest pain, palpitations, dizziness, abdominal pain, nausea, vomiting, CVA tenderness, and back pain. Patient denies chance of . - Related Data Home Medications Medication Instructions Recorded Confirmed Albuterol Sulfate [Proair Hfa] 2 puff INHALATION RT-Q4H PRN 01/04/19 09/29/21 Montelukast [Singulair] 10 mg PO HS 01/04/19 09/29/21 lamoTRIgine [LaMICtal] 150 mg PO BID 01/04/19 09/29/21 DULoxetine HCL 40 mg PO DAILY 09/18/21 09/29/21 Fluticasone Nasal [place] [Flonase 2 spray EA NOSTRIL DAILY 09/18/21 09/29/21 Nasal [place]] Norethindrone-E.estradiol-Iron 1 tab PO DAILY 09/18/21 09/29/21 [Kathie 24 Fe 1 mg-20 Mcg Tablet] Fluticasone Propionate [Flovent 1 puff INHALATION RT-BID 09/29/21 09/29/21 Hfa 110 mcg] Previous Rx's Medication Instructions Recorded Albuterol Inhaler [Ventolin Hfa 2 puff INHALATION RT-QID PRN #8 gm 09/29/21 Inhaler] predniSONE 50 mg PO DAILY #4 tablet 09/29/21 Allergies Allergy/AdvReac Type Severity Reaction Status Date / Time amitriptyline [From Elavil] Allergy Rash/Hives Verified 10/29/21 20:40 bacitracin Allergy Rash/Hives Verified 10/29/21 20:40 [From Neosporin Plus] latex Allergy Rash/Hives Verified 10/29/21 20:40 lidocaine Allergy Rash/Hives Verified 10/29/21 20:40 [From Neosporin Plus] neomycin Allergy Rash/Hives Verified 10/29/21 20:40 [From Neosporin Plus] nickel Allergy Rash/Hives Verified 10/29/21 20:40 polymyxin B Allergy Rash/Hives Verified 10/29/21 20:40 [From Neosporin Plus] pramoxine Allergy Rash/Hives Verified 10/29/21 20:40 [From Neosporin Plus] Sulfa (Sulfonamide Allergy Rash/Hives Verified 10/29/21 20:40 Antibiotics) sulfamethoxazole Allergy Rash/Hives Verified 10/29/21 20:40 [From Bactrim] trimethoprim [From Bactrim] Allergy Rash/Hives Verified 10/29/21 20:40 Review of Systems ROS Statement: Those systems with pertinent positive or pertinent negative responses have been documented in the HPI. ROS Other: All systems not noted in ROS Statement are negative. Past Medical History Past Medical History: Asthma, GERD/Reflux History of Any Multi-Drug Resistant Organisms: None Reported, MRSA Date of last positivie culture/infection: 2016 MDRO Source:: leg, arm Past Surgical History: Adenoidectomy, Orthopedic Surgery, Tonsillectomy Additional Past Surgical History / Comment(s): left knee Past Psychological History: Anxiety, Depression Smoking Status: Never smoker Past Alcohol Use History: None Reported Past Drug Use History: None Reported General Exam Limitations: no limitations General appearance: alert, in no apparent distress Head exam: Present: atraumatic, normocephalic, normal inspection Eye exam: Present: normal appearance, PERRL, EOMI. Absent: scleral icterus, conjunctival injection, periorbital swelling Respiratory exam: Present: normal lung sounds bilaterally. Absent: respiratory distress, wheezes, rales, rhonchi, stridor Cardiovascular Exam: Present: regular rate, normal rhythm, normal heart sounds. Absent: systolic murmur, diastolic murmur, rubs, gallop, clicks GI/Abdominal exam: Present: soft, normal bowel sounds. Absent: distended, tenderness, guarding, rebound, rigid Back exam: Present: normal inspection, full ROM. Absent: tenderness, CVA tenderness (R), CVA tenderness (L) Neurological exam: Present: alert, oriented X3, CN II-XII intact Psychiatric exam: Present: normal affect, normal mood Skin exam: Present: warm, dry, intact, normal color. Absent: rash Course Vital Signs 10/29/21 20:37 Temperature 98.1 F Pulse Rate 99 Respiratory 20 Rate Blood Pressure 145/91 O2 Sat by Pulse 96 Oximetry Medical Decision Making - Medical Decision Making This is a 26-year-old female who presents with pelvic cramping. Thorough history and examination were performed. Urinalysis does not show evidence for infection. Urine hCG is negative. On reevaluation patient is resting in bed. Results discussed with patient. Patient will be discharged and is instructed to follow up with primary care provider in one to 2 days. Return parameters discussed. Patient verbalizes understanding and is agreeable to plan. Dr. Frankel is my attending. - Lab Data Lab Results 10/29/21 10/29/21 Range/Units 21:02 21:02 Urine Color Yellow Urine Appearance Clear (Clear) Urine pH 5.5 (5.0-8.0) Ur Specific [place] 1.025 (1.001-1.035) Urine Protein Negative (Negative) Urine Glucose (UA) Negative (Negative) Urine Ketones Negative (Negative) Urine Blood Negative (Negative) Urine Nitrite Negative (Negative) Urine Bilirubin Negative (Negative) Urine Urobilinogen <2.0 (<2.0) mg/dL Ur Leukocyte Esterase Negative (Negative) Urine HCG, Qual Not Detected (Not Detectd) Disposition Clinical Impression: Pelvic pain Disposition: HOME SELF-CARE Condition: Good Additional Instructions: Follow-up with primary care provider in one to 2 days. Return to the emergency department if you experience new, concerning, or worsening symptoms. Is patient prescribed a controlled substance at d/c from ED?: No Referrals: Joss Fernandes MD [Primary Care Provider] - 1-2 days Time of Disposition: 22:02
== END 2021-10-29 22:19 | disposition home or self-care (01) ==
LOC: EC 20:35
DX: R10.2 Pelvic and perineal pain (principal); J45.909 Unspecified asthma, uncomplicated; K21.9 Gastro-esophageal reflux disease without esophagitis; F41.9 Anxiety disorder, unspecified; F32.A Depression, unspecified; Z91.040 Latex allergy status; Z88.1 Allergy status to other antibiotic agents; Z88.2 Allergy status to sulfonamides
CPT/HCPCS: 81003; 81025; 99284

== ENCOUNTER 2022-09-26 20:09 | Emergency (ER) | payer OTHER ==
[2022-09-26 20:20] VITALS: BP 135/91; TEMP 98.8
[2022-09-26 20:34] VITALS: RESP 16
[2022-09-26] MEDS ORDERED: FAMOTIDINE 20 MG TAB PO STA (20:34)
[2022-09-26] MEDS ORDERED: diphenhydrAMINE 50 MG/ML 1 ML VIAL IM STA (20:34)
[2022-09-26] MEDS ORDERED: methylPREDNISolone SOD SUCCI 125 MG/2 ML VIAL IM ONE (20:34)
--- NOTE | 2022-09-26 22:11 | ED ---
Allergic Reaction HPI - General Chief complaint: Allergic Reaction Stated complaint: Food allergy Time Seen by Provider: 09/26/22 20:27 Source: patient Mode of arrival: ambulatory Limitations: no limitations - History of Present Illness Initial Comments: Patient is a 27-year-old female presenting with chief complaint of potential ALLERGIC reaction. Patient states that after she ate a crouton she was experiencing a "scratchiness" in the back of her throat. This was causing her to cough. She was having mild difficulty breathing. She also states that her cheeks felt very warm, when she looked in the mirror she noticed a very red and had a few bumps on them. She is having no difficulty swallowing, is able to drink water. No change. No wheezing. No chest pain, nausea, vomiting, abdominal pain, facial swelling. - Related Data Home Medications Medication Instructions Recorded Confirmed Albuterol Sulfate [Proair Hfa] 2 puff INHALATION RT-Q4H PRN 01/04/19 09/29/21 Montelukast [Singulair] 10 mg PO HS 01/04/19 09/29/21 lamoTRIgine [LaMICtal] 150 mg PO BID 01/04/19 09/29/21 DULoxetine HCL 40 mg PO DAILY 09/18/21 09/29/21 Fluticasone Nasal [place] [Flonase 2 spray EA NOSTRIL DAILY 09/18/21 09/29/21 Nasal [place]] norethindrone-e.estradioL-iron 1 tab PO DAILY 09/18/21 09/29/21 [Kathie 24 Fe 1 mg-20 Mcg Tablet] Fluticasone Propionate [Flovent 1 puff INHALATION RT-BID 09/29/21 09/29/21 Hfa 110 mcg] Previous Rx's Medication Instructions Recorded Albuterol Inhaler [Ventolin Hfa 2 puff INHALATION RT-QID PRN #8 gm 09/29/21 Inhaler] predniSONE 50 mg PO DAILY #4 tablet 09/29/21 methylPREDNISolone Dose Pack 4 mg PO DIRECTED #1 packet 09/26/22 [Medrol Dose Pack] Allergies Allergy/AdvReac Type Severity Reaction Status Date / Time amitriptyline [From Elavil] Allergy Rash/Hives Verified 09/26/22 20:21 bacitracin Allergy Rash/Hives Verified 09/26/22 20:21 [From Neosporin Plus] latex Allergy Rash/Hives Verified 09/26/22 20:21 lidocaine Allergy Rash/Hives Verified 09/26/22 20:21 [From Neosporin Plus] neomycin Allergy Rash/Hives Verified 09/26/22 20:21 [From Neosporin Plus] nickel Allergy Rash/Hives Verified 09/26/22 20:21 polymyxin B Allergy Rash/Hives Verified 09/26/22 20:21 [From Neosporin Plus] pramoxine Allergy Rash/Hives Verified 09/26/22 20:21 [From Neosporin Plus] Sulfa (Sulfonamide Allergy Rash/Hives Verified 09/26/22 20:21 Antibiotics) sulfamethoxazole Allergy Rash/Hives Verified 09/26/22 20:21 [From Bactrim] trimethoprim [From Bactrim] Allergy Rash/Hives Verified 09/26/22 20:21 Review of Systems ROS Statement: Those systems with pertinent positive or pertinent negative responses have been documented in the HPI. ROS Other: All systems not noted in ROS Statement are negative. Past Medical History Past Medical History: Asthma, GERD/Reflux History of Any Multi-Drug Resistant Organisms: None Reported, MRSA Date of last positivie culture/infection: 2016 MDRO Source:: leg, arm Past Surgical History: Adenoidectomy, Orthopedic Surgery, Tonsillectomy Additional Past Surgical History / Comment(s): left knee Past Psychological History: Anxiety, Depression Smoking Status: Never smoker Past Alcohol Use History: Occasional Past Drug Use History: None Reported General Exam Limitations: no limitations General appearance: alert, in no apparent distress Head exam: Present: atraumatic, normocephalic, normal inspection Eye exam: Present: normal appearance, EOMI. Absent: periorbital swelling, periorbital tenderness ENT exam: Present: normal exam, normal oropharynx, mucous membranes moist, TM's normal bilaterally Expanded Throat exam: normal inspection Neck exam: Present: normal inspection, full ROM. Absent: tenderness Respiratory exam: Present: normal lung sounds bilaterally. Absent: respiratory distress, wheezes, rales, rhonchi, stridor Cardiovascular Exam: Present: regular rate, normal rhythm, normal heart sounds. Absent: systolic murmur, diastolic murmur, rubs, gallop, clicks Neurological exam: Present: alert, oriented X3, CN II-XII intact Psychiatric exam: Present: normal affect, normal mood Skin exam: Present: warm, dry, intact, normal color. Absent: rash Course Vital Signs 09/26/22 09/26/22 09/26/22 20:16 20:33 21:20 Temperature 98.8 F Pulse Rate 98 91 100 Respiratory 17 16 16 Rate Blood Pressure 135/91 O2 Sat by Pulse 98 98 99 Oximetry 09/26/22 22:15 Temperature Pulse Rate 78 Respiratory 16 Rate Blood Pressure O2 Sat by Pulse 100 Oximetry Medical Decision Making - Medical Decision Making Was pt. sent in by a medical professional or institution (, [facility], [facility], urgent care, hospital, or usp...) When possible be specific @ -[No] Did you speak to anyone other than the patient for history (EMS, parent, family, police, friend...)? What history was obtained from this source @ -[No] Did you review nursing and triage notes (agree or disagree)? Why? @ -[I reviewed and agree with nursing and triage notes] Were old charts reviewed (outside hosp., previous admission, EMS record, old EKG, old radiological studies, urgent care reports/EKG's, usp records)? Report findings @ -[No old charts were reviewed] Differential Diagnosis (chest pain, altered mental status, abdominal pain women, abdominal pain men, vaginal bleeding, weakness, fever, dyspnea, syncope, headache, dizziness, GI bleed, back pain, seizure, CVA, palpatations, mental health)? @ -Differential includes ALLERGIC reaction, pharyngitis, rash, bronchitis, this is not meant to be in all-inclusive list EKG interpreted by me (3pts min.). @ -[As above] X-rays interpreted by me (1pt min.). @ -[None done] CT interpreted by me (1pt min.). @ -[None done] U/S interpreted by me (1pt. min.). @ -[None done] What testing was considered but not performed or refused? (CT, X-rays, U/S, labs)? Why? @ -[None] What meds were considered but not given or refused? Why? @ -[None] Did you discuss the management of the patient with other professionals (professionals i.e. , [facility], [facility], lab, RT, psych nurse, addiction social worker, key ringer, teacher, highway patrol officer, patient case manager)? Give summary @ -[No] Was smoking cessation discussed for >3mins.? @ -[No] Was critical care preformed (if so, how long)? @ -[No] Were there social determinants of health that impacted care today? How? ( Homelessness, low income, unemployed, alcoholism, drug addiction, transportation, low edu. Level, literacy, decrease access to med. care, residential, rehab)? @ -[No] Was there de-escalation of care discussed even if they declined (Discuss DNR or withdrawal of care, Hospice)? DNR status @ -[No] What co-morbidities impacted this encounter? (DM, HTN, Smoking, COPD, CAD, Cancer, CVA, ARF, Chemo, Hep., AIDS, mental health diagnosis, sleep apnea, morbid obesity)? @ -[None] Was patient admitted / discharged? Hospital course, mention meds given and route, prescriptions, significant lab abnormalities, going to OR and other pertinent info. @ -Patient is a 27-year-old female presenting with chief complaint of ALLERGIC reaction. She states that this evening after eating and crouton she was experiencing scratchiness in the back of throat, cough, and warm red bumps on her cheeks. On physical examination there is normal posterior pharynx, heart and lungs are clear to auscultation. Patient is given Benadryl, Solu-Medrol, and Pepcid. She is observed for 2 hours. She has no return or worsening of symptoms. She has no difficulty breathing or swallowing. After 2 hours of observation she is agreeable with discharge home. Advised to not eat the food at may have caused this reaction anymore. Take Benadryl as needed. Prescription for Medrol Dosepak sent. Follow-up with PCP. Report back to ER with any new or worsening symptoms. Discussed return parameters and answered all questions. Patient conveyed verbal understanding and agreed to the plan. I discussed this case in detail with my attending Dr. Weiss Undiagnosed new problem with uncertain prognosis? @ -[No] Drug Therapy requiring intensive monitoring for toxicity (Heparin, Nitro, Insulin, Cardizem)? @ -[No] Were any procedures done? @ -[No] Diagnosis/symptom? @ -ALLERGIC reaction Acute, or Chronic, or Acute on Chronic? @ -Acute Uncomplicated (without systemic symptoms) or Complicated (systemic symptoms)? @ -Uncomplicated Side effects of treatment? @ -[No] Exacerbation, Progression, or Severe Exacerbation? @ -[No] Poses a threat to life or bodily function? How? (Chest pain, [place], [place], pneumonia, PE, COPD, DKA, ARF, appy, cholecystitis, CVA, Diverticulitis, Homicidal, Suicidal, threat to staff... and all critical care pts) @ -[No] Disposition Clinical Impression: Allergic reaction Disposition: HOME SELF-CARE Condition: Good Instructions (If sedation given, give patient instructions): General Allergic Reaction (ED) Additional Instructions: Follow-up with PCP. Report back to ER with any new or worsening symptoms. Avoid the food that prompted this reaction. Prescriptions: methylPREDNISolone Dose Pack [Medrol Dose Pack] 4 mg PO DIRECTED #1 packet Is patient prescribed a controlled substance at d/c from ED?: No Referrals: Joss Fernandes MD [Primary Care Provider] - 1-2 days Time of Disposition: 22:11
[2022-09-26 22:16] VITALS: PULSE 78
== END 2022-09-26 22:16 | disposition home or self-care (01) ==
LOC: EC 20:09
DX: T78.1XXA Other adverse food reactions, not elsewhere classified, initial encounter (principal); J45.909 Unspecified asthma, uncomplicated; F32.A Depression, unspecified; F41.9 Anxiety disorder, unspecified; Z88.2 Allergy status to sulfonamides; Z91.040 Latex allergy status; Z88.1 Allergy status to other antibiotic agents; Z88.4 Allergy status to anesthetic agent; Z90.89 Acquired absence of other organs; Z79.899 Other long term (current) drug therapy
CPT/HCPCS: 99283; 96372; J1200; J2930

== ENCOUNTER 2022-10-07 20:27 | Emergency (ER) | payer OTHER ==
[2022-10-07 20:32] VITALS: TEMP 98
--- NOTE | 2022-10-07 21:16 | ED ---
URI HPI - General Chief Complaint: Upper Respiratory Infection Stated Complaint: Sinus pressure Time Seen by Provider: 10/07/22 21:05 Source: patient, RN notes reviewed, old records reviewed Mode of arrival: ambulatory Limitations: no limitations - History of Present Illness Initial Comments: This is a pleasant nontoxic-appearing 27-year-old female that presents with sinus pressure for the past 2 days and frontal headache todya. States headache is worse when she leans forward. Denies any fevers or chills. No nausea vomiting or diarrhea. She does have a history of asthma, GERD, tonsillectomy and adenoidectomy. She is a nonsmoker. MD Complaint: nasal congestion -: days(s) (2) Severity scale (1-10): 5 Consistency: constant Improves With: nothing Worsens With: nothing Associated Symptoms: nasal congestion (Sinus congestion), other - Related Data Home Medications Medication Instructions Recorded Confirmed Albuterol Sulfate [Proair Hfa] 2 puff INHALATION RT-Q4H PRN 01/04/19 09/29/21 Montelukast [Singulair] 10 mg PO HS 01/04/19 09/29/21 lamoTRIgine [LaMICtal] 150 mg PO BID 01/04/19 09/29/21 DULoxetine HCL 40 mg PO DAILY 09/18/21 09/29/21 Fluticasone Nasal [place] [Flonase 2 spray EA NOSTRIL DAILY 09/18/21 09/29/21 Nasal [place]] norethindrone-e.estradioL-iron 1 tab PO DAILY 09/18/21 09/29/21 [Kathie 24 Fe 1 mg-20 Mcg Tablet] Fluticasone Propionate [Flovent 1 puff INHALATION RT-BID 09/29/21 09/29/21 Hfa 110 mcg] Previous Rx's Medication Instructions Recorded Albuterol Inhaler [Ventolin Hfa 2 puff INHALATION RT-QID PRN #8 gm 09/29/21 Inhaler] predniSONE 50 mg PO DAILY #4 tablet 09/29/21 methylPREDNISolone Dose Pack 4 mg PO DIRECTED #1 packet 09/26/22 [Medrol Dose Pack] Allergies Allergy/AdvReac Type Severity Reaction Status Date / Time amitriptyline [From avil] Allergy Rash/Hives Verified 09/26/22 20:21 bacitracin Allergy Rash/Hives Verified 09/26/22 20:21 [From Neosporin Plus] latex Allergy Rash/Hives Verified 09/26/22 20:21 lidocaine Allergy Rash/Hives Verified 09/26/22 20:21 [From Neosporin Plus] neomycin Allergy Rash/Hives Verified 09/26/22 20:21 [From Neosporin Plus] nickel Allergy Rash/Hives Verified 09/26/22 20:21 polymyxin B Allergy Rash/Hives Verified 09/26/22 20:21 [From Neosporin Plus] pramoxine Allergy Rash/Hives Verified 09/26/22 20:21 [From Neosporin Plus] Sulfa (Sulfonamide Allergy Rash/Hives Verified 09/26/22 20:21 Antibiotics) sulfamethoxazole Allergy Rash/Hives Verified 09/26/22 20:21 [From Bactrim] trimethoprim [From Bactrim] Allergy Rash/Hives Verified 09/26/22 20:21 Review of Systems ROS Statement: Those systems with pertinent positive or pertinent negative responses have been documented in the HPI. ROS Other: All systems not noted in ROS Statement are negative. Past Medical History Past Medical History: Asthma, GERD/Reflux History of Any Multi-Drug Resistant Organisms: None Reported, MRSA Date of last positivie culture/infection: 2016 MDRO Source:: leg, arm Past Surgical History: Adenoidectomy, Orthopedic Surgery, Tonsillectomy Additional Past Surgical History / Comment(s): left knee Past Psychological History: Anxiety, Depression Smoking Status: Never smoker Past Alcohol Use History: Occasional Past Drug Use History: None Reported General Exam Limitations: no limitations General appearance: alert, in no apparent distress Head exam: Present: atraumatic, normocephalic, normal inspection Eye exam: Present: normal appearance. Absent: scleral icterus, conjunctival injection, periorbital swelling, periorbital tenderness ENT exam: Present: normal exam, normal oropharynx, mucous membranes moist Expanded Mouth exam: Present: tongue normal, tongue elevation. Absent: drooling, trismus, muffled voice Throat exam: negative: tonsillar erythema, tonsillomegaly, tonsillar exudate, R peritonsillar mass, L peritonsillar mass Neck exam: Present: full ROM. Absent: tenderness, meningismus, lymphadenopathy Respiratory exam: Present: normal lung sounds bilaterally. Absent: respiratory distress, accessory muscle use Cardiovascular Exam: Present: regular rate GI/Abdominal exam: Present: soft. Absent: distended, tenderness Neurological exam: Present: alert, oriented X3 Psychiatric exam: Present: normal affect, normal mood Skin exam: Present: warm, dry, intact, normal color. Absent: rash, cyanosis, diaphoretic, petechiae, pallor Course Vital Signs 10/07/22 10/07/22 20:28 21:43 Temperature 98 F Pulse Rate 100 68 Respiratory 20 16 Rate Blood Pressure 158/87 130/64 O2 Sat by Pulse 97 98 Oximetry Medical Decision Making - Medical Decision Making Patient presents with 2 days of sinus congestion and frontal sinus headache. Denies any fevers or chills. No nausea vomiting or diarrhea. She has no pain with palpation of the sinuses. No nasal discharge. No dental pain. No respiratory distress. Denies any cough. She was directed to use Mucinex as a decongestant [id number]. Tylenol and/or Motrin as needed for any pain or discomfort. Increase her fluid intake. She is agreeable to this plan of care. Case discussed with Dr. Frankel Was pt. sent in by a medical professional or institution? @ -no Did you speak to anyone other than the patient for history? @ -no Did you review nursing and triage notes? @ -yes i agree Were old charts reviewed? @ -no Differential Diagnosis? @ -Upper respiratory infection, sinusitis, meningitis, retropharyngeal abscess, dehydration, trigeminal neuralgia, dental pain What testing was considered but not performed? (CT, X-rays, U/S, labs)? Why? @ none What meds were considered but not given? Why? @ -Antibiotics were considered however patient's symptoms only been present for 2 days and she has been afebrile. No pain with palpation to the sinuses. Did you discuss the management of the patient with other professionals? @ -no Did you reconcile home meds? @ -no Was smoking cessation discussed for >3mins.? @ -no Was critical care preformed (if so, how long)? @ -no Were there social determinants of health that impacted care today? How? (Homelessness, low income, unemployed, alcoholism, drug addiction, transportation, low edu. Level, literacy, decrease access to med. care, senior care, rehab)? @ -none Was there de-escalation of care discussed even if they declined? (Discuss DNR or withdrawal of care, Hospice)? @ -no What co-morbidities impacted this encounter? (DM, HTN, Smoking, COPD, CAD, Cancer, CVA, Hep., AIDS, mental health diagnosis, sleep apnea, morbid obesity)? @ -Asthma, GERD Was patient admitted / discharged? @ -discharged Undiagnosed new problem with uncertain prognosis? @ -no Drug Therapy requiring intensive monitoring for toxicity (Heparin, Nitro, Insulin, Cardizem)? @ -no Were any procedures done? @ -no Diagnosis/symptom? @ -Upper respiratory infectiona Acute, or Chronic, or Acute on Chronic? @ acute Uncomplicated (without systemic symptoms) or Complicated (systemic symptoms)? @ -Uncomplicated Side effects of treatment? @ -[none] Exacerbation, Progression, or Severe Exacerbation] @ -[no] Poses a threat to life or bodily function? @ -[no] Disposition Clinical Impression: Upper respiratory tract infection Disposition: HOME SELF-CARE Condition: Good Instructions (If sedation given, give patient instructions): Upper Respiratory Infection (ED) Additional Instructions: Use [id number] decongestants like Mucinex and increase your fluid intake. Tylenol and/or Motrin as needed for any headaches. Increase your fluid intake. Follow-up with your primary care doctor next week. Return to the emergency room with any new or concerning symptoms including increased pain, vision changes, persistent nausea vomiting or fevers. Is patient prescribed a controlled substance at d/c from ED?: No Referrals: Joss Fernandes MD [Primary Care Provider] - 1-2 days Time of Disposition: 21:16
[2022-10-07] MEDS ORDERED: IBUPROFEN 800 MG TAB PO STA (21:18)
[2022-10-07 21:45] VITALS: BP 130/64; PULSE 68; RESP 16
== END 2022-10-07 21:45 | disposition home or self-care (01) ==
LOC: EC 20:27
DX: J06.9 Acute upper respiratory infection, unspecified (principal); J45.909 Unspecified asthma, uncomplicated; F41.9 Anxiety disorder, unspecified; F32.A Depression, unspecified; Z79.899 Other long term (current) drug therapy; Z88.2 Allergy status to sulfonamides; Z91.040 Latex allergy status; Z88.1 Allergy status to other antibiotic agents; Z88.4 Allergy status to anesthetic agent; Z88.8 Allergy status to other drugs, medicaments and biological substances
CPT/HCPCS: 99282

== ENCOUNTER 2024-12-22 20:04 | Emergency (ER) | payer OTHER ==
[2024-12-22 20:08] VITALS: TEMP 98
--- NOTE | 2024-12-22 20:35 | ED ---
ENT HPI - General Chief complaint: ENT Stated complaint: ear pain,headaches Time Seen by Provider: 12/22/24 20:11 Source: patient Mode of arrival: ambulatory Limitations: no limitations - History of Present Illness Initial comments: 29-year-old female presents emergency department for otalgia. Patient states that she was diagnosed with bilateral ear infection urgent care 2 weeks ago where she was prescribed Augmentin and completed full course 4 days ago. Patient states that about 2 days ago she began to experience right-sided ear pressure feeling like there is water stuck behind her ear. She states that she has had mild muffled hearing. She denies discharge from the ear, fevers, chills, mastoid tenderness. - Related Data Home Medications Medication Instructions Recorded Confirmed Albuterol Sulfate [Proair Hfa] 2 puff INHALATION RT-Q4H PRN 01/04/19 09/29/21 Montelukast [Singulair] 10 mg PO HS 01/04/19 09/29/21 lamoTRIgine [LaMICtal] 150 mg PO BID 01/04/19 09/29/21 DULoxetine HCL 40 mg PO DAILY 09/18/21 09/29/21 Fluticasone Nasal [place] [Flonase 2 spray EA NOSTRIL DAILY 09/18/21 09/29/[address] [place]] norethindrone-e.estradioL-iron 1 tab PO DAILY 09/18/21 09/29/21 [Kathie 24 Fe 1 mg-20 Mcg Tablet] Fluticasone Propionate [Flovent 1 puff INHALATION RT-BID 09/29/21 09/29/21 Hfa 110 mcg] Previous Rx's Medication Instructions Recorded Albuterol Inhaler [Ventolin Hfa 2 puff INHALATION RT-QID PRN #8 gm 09/29/21 Inhaler] predniSONE 50 mg PO DAILY #4 tablet 09/29/21 methylPREDNISolone Dose Pack 4 mg PO DIRECTED #1 packet 09/26/22 [Medrol Dose Pack] Allergies Allergy/AdvReac Type Severity Reaction Status Date / Time amitriptyline [From Elavil] Allergy Rash/Hives Verified 12/22/24 20:08 bacitracin Allergy Rash/Hives Verified 12/22/24 20:08 [From Neosporin Plus] latex Allergy Rash/Hives Verified 12/22/24 20:08 lidocaine Allergy Rash/Hives Verified 12/22/24 20:08 [From Neosporin Plus] neomycin Allergy Rash/Hives Verified 12/22/24 20:08 [From Neosporin Plus] nickel Allergy Rash/Hives Verified 12/22/24 20:08 polymyxin B Allergy Rash/Hives Verified 12/22/24 20:08 [From Neosporin Plus] pramoxine Allergy Rash/Hives Verified 12/22/24 20:08 [From Neosporin Plus] Sulfa (Sulfonamide Allergy Rash/Hives Verified 12/22/24 20:08 Antibiotics) sulfamethoxazole Allergy Rash/Hives Verified 12/22/24 20:08 [From Bactrim] trimethoprim [From Bactrim] Allergy Rash/Hives Verified 12/22/24 20:08 Review of Systems ROS Statement: Those systems with pertinent positive or pertinent negative responses have been documented in the HPI. ROS Other: All systems not noted in ROS Statement are negative. Past Medical History Past Medical History: Asthma, GERD/Reflux History of Any Multi-Drug Resistant Organisms: None Reported, MRSA Date of last positivie culture/infection: 2016 MDRO Source:: leg, arm Past Surgical History: Adenoidectomy, Orthopedic Surgery, Tonsillectomy Additional Past Surgical History / Comment(s): left knee Past Psychological History: Anxiety, Depression Smoking Status: Never smoker Past Alcohol Use History: Occasional Past Drug Use History: None Reported General Exam Limitations: no limitations General appearance: alert, in no apparent distress Expanded Ear exam: Present: normal external inspection Mouth exam: Present: normal external inspection Neck exam: Present: normal inspection. Absent: tenderness, meningismus, lymphadenopathy Respiratory exam: Present: normal lung sounds bilaterally. Absent: respiratory distress, wheezes, rales, rhonchi, stridor Cardiovascular Exam: Present: regular rate, normal rhythm, normal heart sounds. Absent: systolic murmur, diastolic murmur, rubs, gallop, clicks GI/Abdominal exam: Present: soft, normal bowel sounds. Absent: distended, tenderness, guarding, rebound, rigid Extremities exam: Present: normal inspection, full ROM, normal capillary refill. Absent: tenderness, pedal edema, joint swelling, calf tenderness Back exam: Present: normal inspection Skin exam: Present: warm, dry, intact, normal color. Absent: rash Course Vital Signs 04/12/25 20:05 Temperature 98.0 F Pulse Rate 99 Respiratory 18 Rate Blood Pressure 116/75 O2 Sat by Pulse 99 Oximetry Medical Decision Making - Medical Decision Making Was pt. sent in by a medical professional or institution (G[employer] Lan, [employer]ODUCTION STAGE MANAGER, urgent care, hospital, or retirement...) When possible be specific @ -No Did you speak to anyone other than the patient for history (EMS, parent, family, police, friend...)? What history was obtained from this source @ -No Did you review nursing and triage notes (agree or disagree)? Why? @ -I reviewed and agree with nursing and triage notes Were old charts reviewed (outside hosp., previous admission, EMS record, old EKG, old radiological studies, urgent care reports/EKG's, retirement records)? Report findings @ -No old charts were reviewed Differential Diagnosis (chest pain, altered mental status, abdominal pain women, abdominal pain men, vaginal bleeding, weakness, fever, dyspnea, syncope, headache, dizziness, GI bleed, back pain, seizure, CVA, palpatations, mental health, musculoskeletal)? @ -Otalgia, otitis media, otitis externa, mastoiditis, this list is not all inclusive EKG interpreted by me (3pts min.). @ -None X-rays interpreted by me (1pt min.). @ -None done CT interpreted by me (1pt min.). @ -None done U/S interpreted by me (1pt. min.). @ -None done What testing was considered but not performed or refused? (CT, X-rays, U/S, labs)? Why? @ -None What meds were considered but not given or refused? Why? @ -None Did you discuss the management of the patient with other professionals (professionals i.e. G[employer] Lan, PRODUCTION STAGE MANAGER, lab, RT, psych nurse, social work manager, trolley worker, teacher, nursing officer, manager case)? Give summary @ -No Was smoking cessation discussed for >3mins.? @ -No Was critical care preformed (if so, how long)? @ -No Were there social determinants of health that impacted care today? How? (Homelessness, low income, unemployed, alcoholism, drug addiction, transportation, low edu. Level, literacy, decrease access to med. care, shelter, rehab)? @ -No Was there de-escalation of care discussed even if they declined (Discuss DNR or withdrawal of care, Hospice)? DNR status @ -No What co-morbidities impacted this encounter? (DM, HTN, Smoking, COPD, CAD, Cancer, CVA, ARF, Chemo, Hep., AIDS, mental health diagnosis, sleep apnea, morbid obesity)? @ -None Was patient admitted / discharged? Hospital course, mention meds given and route, prescriptions, significant lab abnormalities, going to OR and other pertinent info. @ -Discharge. 22year old female presenting with complaint of otalgia. Bilater al TMs visualized with no evidence of infection. TMs are clear, not erythematous or bulging. There is no mastoid tenderness or pedal tenderness. Patient is instructed to continue [id number] cetirizine and Flonase. Recommend follow-up with primary care provider. Case discussed with Dr. Gutierrez Undiagnosed new problem with uncertain prognosis? @ -No Drug Therapy requiring intensive monitoring for toxicity (Heparin, Nitro, Insulin, Cardizem)? @ -No Were any procedures done? @ -No Diagnosis/symptom? @ -otalgia Acute, or Chronic, or Acute on Chronic? @ -acute Uncomplicated (without systemic symptoms) or Complicated (systemic symptoms)? @ -uncomplicated Side effects of treatment? @ -No Exacerbation, Progression, or Severe Exacerbation? @ -No Poses a threat to life or bodily function? How? (Chest pain, [place], [place], pneumonia, PE, COPD, DKA, ARF, appy, cholecystitis, CVA, Diverticulitis, Homicidal, Suicidal, threat to staff... and all critical care pts) @ -No Disposition Clinical Impression: Otalgia of right ear Disposition: HOME SELF-CARE Condition: Good Instructions (If sedation given, give patient instructions): Earache (ED) Additional Instructions: Please return to the Emergency Department if symptoms worsen or any other concerns. As discussed, recommend using Flonase and Zyrtec for ear pressure. Is patient prescribed a controlled substance at d/c from ED?: No Referrals: None,Stated [Primary Care Provider] - 1-2 days Time of Disposition: 20:34
[2024-12-22 20:44] VITALS: BP 118/74; PULSE 97; RESP 16
== END 2024-12-22 20:45 | disposition home or self-care (01) ==
LOC: EC 20:04
DX: H92.01 Otalgia, right ear (principal); Z88.8 Allergy status to other drugs, medicaments and biological substances; Z88.1 Allergy status to other antibiotic agents; Z88.2 Allergy status to sulfonamides; Z91.048 Other nonmedicinal substance allergy status; Z91.040 Latex allergy status; Z88.4 Allergy status to anesthetic agent
CPT/HCPCS: 99282